=== PATIENT | female | born 1930 | race Caucasian/White ===

== ENCOUNTER → 2016-09-08 | Outpatient (CLI) | payer MEDICARE ==
[~2016-09-08] MED LIST: AMIT8CAP6 OR; DEXI60CA3 PO; ESTR1 PO; LEVO.05 PO; METO25 PO; PRAV40TA PO; PRIN10TA PO; TRAM50 PO; VESI10TA4 PO; pradaxa PO
[2016-09-08 13:32] LABS: MEAN CELL VOLUME 93.3 FL (80.0-100.0); MEAN CORPUSCULAR HEMOGLOBIN 31.6 PG (27.0-34.0); MEAN CORPUSCULAR HGB CONC 33.9 % (32.0-36.0); PLATELET COUNT 157 TH/MM3 (150-450); RED BLOOD COUNT 4.07 MIL/MM3 (4.00-5.30); REVIEW FLAG FINAL; WHITE BLOOD COUNT 3.5 TH/MM3 (4.0-11.0)
[2016-09-08 14:15] LABS: ALKALINE PHOSPHATASE 102 U/L (45-117); ALT (GPT) 21 U/L (10-53); ANION GAP 5 MEQ/L (5-15); AST (GOT) 21 U/L (15-37); BICARBONATE 35.3 MEQ/L (21.0-32.0); BLOOD UREA NITROGEN 30 MG/DL (7-18); CHLORIDE 96 MEQ/L (98-107); FREE T4 1.21 NG/DL (0.76-1.46); GLOMERULAR FILTRATION RATE 45 ML/MIN (>89); GLUCOSE,FASTING 73 MG/DL (74-99); LDL CHOLESTEROL 59 MG/DL (0-99); LDL CHOLESTEROL DIRECT 80 MG/DL (0-99); SODIUM (NA) 136 MEQ/L (136-145); TOTAL BILIRUBIN ADULT 0.8 MG/DL (0.2-1.0)
[2016-09-08 14:20] LABS: POTASSIUM 2.6 MEQ/L (3.5-5.1)
== END ==
LOC: PLAB 08:45
PROVIDERS: ATTEND Family Medicine
DX: I25.10 Atherosclerotic heart disease of native coronary artery without angina pectoris (principal); E78.2 Mixed hyperlipidemia; I10 Essential (primary) hypertension; E03.8 Other specified hypothyroidism; I48.91 Unspecified atrial fibrillation
CPT/HCPCS: 36415; 80053; 80061; 83721; 84439; 84443; 85027

== ENCOUNTER → 2016-09-14 | Outpatient (CLI) | payer MEDICARE | LOC: PLAB 08:59 | PROVIDERS: ATTEND Family Medicine | DX: R79.89 Other specified abnormal findings of blood chemistry (principal) | CPT/HCPCS: 36415; 84132 ==

== ENCOUNTER → 2016-10-15 | Outpatient (CLI) | payer MEDICARE | LOC: PLAB 09:14 | PROVIDERS: ATTEND Family Medicine | DX: E87.6 Hypokalemia (principal) | CPT/HCPCS: 36415; 84132 ==

== ENCOUNTER → 2016-12-15 | Outpatient (CLI) | payer MEDICARE ==
[2016-12-15 13:06] LABS: HEMATOCRIT 35.9 % (35.0-46.0); MEAN CORPUSCULAR HEMOGLOBIN 32.9 PG (27.0-34.0); PLATELET COUNT 124 TH/MM3 (150-450); RED BLOOD COUNT 3.81 MIL/MM3 (4.00-5.30); RED CELL DISTRIBUTION WIDTH 13.3 % (11.6-17.2); REVIEW FLAG FINAL
[2016-12-15 13:44] LABS: ANION GAP 4 MEQ/L (5-15); AST (GOT) 23 U/L (15-37); BICARBONATE 34.4 MEQ/L (21.0-32.0); BLOOD UREA NITROGEN 25 MG/DL (7-18); CHLORIDE 101 MEQ/L (98-107); GLOMERULAR FILTRATION RATE 46 ML/MIN (>89); GLUCOSE,FASTING 75 MG/DL (74-99); POTASSIUM 4.1 MEQ/L (3.5-5.1); SODIUM (NA) 139 MEQ/L (136-145)
[2016-12-15 13:56] LABS: ALKALINE PHOSPHATASE 90 U/L (45-117); ALT (GPT) 22 U/L (10-53); HDL CHOLESTEROL 68.4 MG/DL (40.0-60.0); LDL CHOLESTEROL 60 MG/DL (0-99); LDL CHOLESTEROL DIRECT 59 MG/DL (0-99); TOTAL BILIRUBIN ADULT 0.8 MG/DL (0.2-1.0)
== END ==
LOC: PLAB 09:30
PROVIDERS: ATTEND Family Medicine
DX: I25.10 Atherosclerotic heart disease of native coronary artery without angina pectoris (principal); I12.9 Hypertensive chronic kidney disease with stage 1 through stage 4 chronic kidney disease, or unspecified chronic kidney disease; N18.3 Chronic kidney disease, stage 3 (moderate); E78.4 Other hyperlipidemia; E03.8 Other specified hypothyroidism
CPT/HCPCS: 36415; 80053; 80061; 83721; 84439; 84443; 85027

== ENCOUNTER → 2017-03-16 | Outpatient (CLI) | payer MEDICARE ==
[2017-03-16 13:20] LABS: HEMATOCRIT 34.1 % (35.0-46.0); MEAN CELL VOLUME 94.3 FL (80.0-100.0); MEAN CORPUSCULAR HEMOGLOBIN 32.2 PG (27.0-34.0); MEAN CORPUSCULAR HGB CONC 34.1 % (32.0-36.0); PLATELET COUNT 143 TH/MM3 (150-450); RED BLOOD COUNT 3.62 MIL/MM3 (4.00-5.30); RED CELL DISTRIBUTION WIDTH 13.1 % (11.6-17.2); REVIEW FLAG FINAL; WHITE BLOOD COUNT 2.6 TH/MM3 (4.0-11.0)
[2017-03-16 13:48] LABS: ANION GAP 6 MEQ/L (5-15); AST (GOT) 18 U/L (15-37); BICARBONATE 32.6 MEQ/L (21.0-32.0); BLOOD UREA NITROGEN 23 MG/DL (7-18); CHLORIDE 97 MEQ/L (98-107); GLOMERULAR FILTRATION RATE 47 ML/MIN (>89); GLUCOSE,FASTING 77 MG/DL (74-99); POTASSIUM 3.3 MEQ/L (3.5-5.1); SODIUM (NA) 136 MEQ/L (136-145)
[2017-03-16 13:57] LABS: ALKALINE PHOSPHATASE 84 U/L (45-117); ALT (GPT) 19 U/L (10-53); FREE T4 1.25 NG/DL (0.76-1.46); HDL CHOLESTEROL 76.5 MG/DL (40.0-60.0); LDL CHOLESTEROL 43 MG/DL (0-99); LDL CHOLESTEROL DIRECT 52 MG/DL (0-99); TOTAL BILIRUBIN ADULT 0.8 MG/DL (0.2-1.0)
== END ==
LOC: PLAB 09:06
PROVIDERS: ATTEND Family Medicine
DX: I25.10 Atherosclerotic heart disease of native coronary artery without angina pectoris (principal); I12.9 Hypertensive chronic kidney disease with stage 1 through stage 4 chronic kidney disease, or unspecified chronic kidney disease; N18.3 Chronic kidney disease, stage 3 (moderate); E78.2 Mixed hyperlipidemia; E03.8 Other specified hypothyroidism
CPT/HCPCS: 36415; 80053; 80061; 83721; 84439; 84443; 85027

== ENCOUNTER → 2017-06-29 | Outpatient (CLI) | payer MEDICARE ==
[2017-06-29 13:32] LABS: HEMATOCRIT 34.3 % (35.0-46.0); MEAN CELL VOLUME 95.4 FL (80.0-100.0); MEAN CORPUSCULAR HEMOGLOBIN 33.1 PG (27.0-34.0); MEAN CORPUSCULAR HGB CONC 34.7 % (32.0-36.0); PLATELET COUNT 171 TH/MM3 (150-450); REVIEW FLAG FINAL; WHITE BLOOD COUNT 3.4 TH/MM3 (4.0-11.0)
[2017-06-29 13:45] LABS: ANION GAP 4 MEQ/L (5-15); AST (GOT) 19 U/L (15-37); BICARBONATE 33.5 MEQ/L (21.0-32.0); BLOOD UREA NITROGEN 21 MG/DL (7-18); CHLORIDE 102 MEQ/L (98-107); GLOMERULAR FILTRATION RATE 46 ML/MIN (>89); GLUCOSE,FASTING 84 MG/DL (74-99); POTASSIUM 3.4 MEQ/L (3.5-5.1); SODIUM (NA) 139 MEQ/L (136-145)
[2017-06-29 13:54] LABS: ALKALINE PHOSPHATASE 83 U/L (45-117); ALT (GPT) 14 U/L (10-53); FREE T4 1.17 NG/DL (0.76-1.46); LDL CHOLESTEROL 50 MG/DL (0-99); LDL CHOLESTEROL DIRECT 56 MG/DL (0-99); TOTAL BILIRUBIN ADULT 0.8 MG/DL (0.2-1.0)
== END ==
LOC: PLAB 10:27
PROVIDERS: ATTEND Family Medicine
DX: I25.10 Atherosclerotic heart disease of native coronary artery without angina pectoris (principal); N18.3 Chronic kidney disease, stage 3 (moderate); E78.5 Hyperlipidemia, unspecified; I10 Essential (primary) hypertension; E03.8 Other specified hypothyroidism
CPT/HCPCS: 36415; 80053; 80061; 83721; 84100; 84439; 84443; 85027

== ENCOUNTER → 2017-10-07 | Outpatient (CLI) | payer MEDICARE ==
[2017-10-07 10:43] LABS: HEMATOCRIT 36.1 % (35.0-46.0); HEMOGLOBIN 12.5 GM/DL (11.6-15.3); MEAN CELL VOLUME 93.8 FL (80.0-100.0); MEAN CORPUSCULAR HEMOGLOBIN 32.6 PG (27.0-34.0); MEAN CORPUSCULAR HGB CONC 34.7 % (32.0-36.0); PLATELET COUNT 297 TH/MM3 (150-450); RED BLOOD COUNT 3.85 MIL/MM3 (4.00-5.30); RED CELL DISTRIBUTION WIDTH 13.1 % (11.6-17.2)
[2017-10-07 11:13] LABS: ALBUMIN 3.4 GM/DL (3.4-5.0); AST (GOT) 25 U/L (15-37); BICARBONATE 31.3 MEQ/L (21.0-32.0); BLOOD UREA NITROGEN 20 MG/DL (7-18); CALCIUM 8.6 MG/DL (8.5-10.1); CHLORIDE 99 MEQ/L (98-107); CREATININE 1.07 MG/DL (0.50-1.00); GLOMERULAR FILTRATION RATE 48 ML/MIN (>89); GLUCOSE,FASTING 83 MG/DL (74-99); SODIUM (NA) 135 MEQ/L (136-145)
[2017-10-07 11:25] LABS: ALKALINE PHOSPHATASE 90 U/L (45-117); ALT (GPT) 16 U/L (10-53); CHOLESTEROL 133 MG/DL (120-200); CHOLESTEROL/ HDL RATIO 2.12 RATIO; FREE T4 1.28 NG/DL (0.76-1.46); HDL CHOLESTEROL 62.5 MG/DL (40.0-60.0); LDL CHOLESTEROL 57 MG/DL (0-99); LDL CHOLESTEROL DIRECT 70 MG/DL (0-99); TOTAL BILIRUBIN ADULT 0.6 MG/DL (0.2-1.0); TOTAL PROTEIN 8.1 GM/DL (6.4-8.2); TRIGLYCERIDES 69 MG/DL (42-150)
== END ==
LOC: PLAB 09:02
PROVIDERS: ATTEND Family Medicine
DX: I25.10 Atherosclerotic heart disease of native coronary artery without angina pectoris (principal); E78.2 Mixed hyperlipidemia; I10 Essential (primary) hypertension; E03.8 Other specified hypothyroidism
CPT/HCPCS: 36415; 80053; 80061; 83721; 84439; 84443; 85027

== ENCOUNTER 2018-03-06 00:42 | Inpatient (IN) ==
[2018-03-06] MEDS ORDERED: Sod Chloride 0.9% Inj 1,000 ML IV.SIG ONE (01:19)
--- NOTE | 2018-03-06 01:45 | ED ---
HPI General Chief Complaint: Syncope Stated Complaint: EVAC/Syncope Source: patient and EMS Mode of arrival: EMS Limitations: no limitations History of Present Illness HPI narrative: 87-year-old woman brought to ED after suffering a syncopal event at her assisted living. She has been experiencing syncopal episodes several times a day for at least the past week. She was seen in this ED earlier in the week for same and then discharged. The episodes occur without warning and she typically does not fall when they occur. She did not fall when she had the syncopal event tonight. It occurred about an hour prior to her arrival. She does not remember anything except waking up with people around her. She denies chest pain and exertional dyspnea. She denies palpitations. No headache. No fevers or chills. She does feel somewhat fatigued. No focal neurological deficits or strokelike symptoms. No blood in stool or bloody vomitus. No seizure activity, tongue biting or urinary incontinence. complaint: loss of consciousness Onset (ago): week(s) -: second(s) Prodromal symptoms: none Injuries sustained associated with event: none Related Data Home Medications Medication Instructions Recorded Confirmed levothyroxine 50 mcg PO DAILY 03/06/18 03/06/18 Allergies Allergy/AdvReac Type Severity Reaction Status Date / Time aspirin Allergy Severe CANNOT Verified 03/06/18 00:57 TAKE DUE TO PACEMAKER codeine Allergy Severe Agitation Verified 03/06/18 00:57 Review of Systems ROS: all other systems reviewed are negative [facility] [place] Medical History Medical History GERD (gastroesophageal reflux disease) (Acute) Hypothyroidism (Acute) Atrial fibrillation (Acute) Hyperlipemia (Acute) Hypertension (Acute) Pacemaker (Acute) Social History Social History Substance History: No History of Abuse Second Hand Smoke Exposure: No Smoking Status: Never smoker How Often Do You Have a Drink Containing Alcohol: Never Recent Travel in [facility] within the Last 8 Weeks: No Recent Out of Country Travel within the Last 8 Weeks: No Immunization History Tetanus Immunization: Unsure Hx Influenza Vaccine This Season: Yes Exam Narrative Exam Narrative: GENERAL: Thin 87-year-old woman lying on stretcher in no acute distress. There are no companions at bedside at the time of my exam. SKIN: Focused skin assessment warm/dry. Multiple bruises in various states of healing and lacerations on forearms and legs. HEAD: Atraumatic. Normocephalic. No trauma present above the level the clavicles. EYES: Pupils equal and round. No scleral icterus. No injection or drainage. ENT: No nasal bleeding or discharge. Mucous membranes pink and moist. NECK: Trachea midline. No JVD. No cervical midline tenderness. Able to rotate head greater than 60 left and right. CARDIOVASCULAR: Regular rate and rhythm. No murmur appreciated. RESPIRATORY: No accessory muscle use. Clear to auscultation. Breath sounds equal bilaterally. GASTROINTESTINAL: Abdomen soft, non-tender, nondistended. Hepatic and splenic margins not palpable. MUSCULOSKELETAL: No obvious deformities. No clubbing. No cyanosis. No edema. NEUROLOGICAL: Awake and alert. No obvious cranial nerve deficits. Motor grossly within normal limits. Normal speech. Extraocular motions intact. No dysarthria or slurred speech. No facial droop. 5 out of 5 motor strength in all 4 extremities. Sensation intact to light touch in all 4 limbs. Normal coordination and no ataxia. PSYCHIATRIC: Appropriate mood and affect; insight and judgment normal. Course Reevaluation(s) Reevaluation #1: Potassium oral and IV forms ordered to treat patient's hypokalemia. Patient stable in the ED with no further episodes of syncope. Time: 03:53 Consultations Consultation #1: Spoke with Dr. VILLAVICENCIO regarding the patient's hypokalemia and syncopal events. Also described the patient's ECG changes. She will admit patient to ICU under telemetry. Time: 04:17 Initial Documented Vital Signs Temperature 98.2 F 03/06/18 00:45 Pulse Rate 86 03/06/18 00:45 Respiratory Rate 16 03/06/18 00:45 Blood Pressure 120/62 03/06/18 00:45 Pulse Oximetry 100 03/06/18 00:45 Last Documented Vital Signs Temperature 98.2 F 03/06/18 00:45 Pulse Rate 78 03/06/18 01:15 Respiratory Rate 16 03/06/18 01:15 Blood Pressure 122/55 L 03/06/18 01:15 Pulse Oximetry 98 03/06/18 01:15 Critical Care Time Critical Care Time: Yes Total Critical Care Time: 45 Attestation: Dedicated attention to this patient's needs was necessary to prevent further deterioration and to treat her hypokalemia with ECG changes in the setting of syncopal events. My time was spent at bedside examining patient , reviewing past medical records, ordering and reviewing laboratory results, interpreting ECG, and discussing case with wardrobe consultant (hospitalist). Medical Decision Making MDM Narrative Medical decision making narrative: 87-year-old female brought in for syncopal events. Previously seen for same and discharged after that evaluation. I am concerned because she has deep ST depressions in V3 and V4; however no reported anginal symptoms so I doubt ACS. I think admission is likely necessary for further observation and evaluation of these events. She was found to have profound hypokalemia so I ordered oral and IV replacement. No evidence of trauma so I do not think that imaging is necessary. No focal neurological deficits to suggest TIA or CVA. Medical Screen Exam Complete: Yes Emergency Medical Condition: Yes Differential Diagnosis Differential Diagnosis: ACS, mitral regurgitation, aortic stenosis, heart failure, renal failure, hypokalemia, hyponatremia, anemia, polypharmacy, drug side effects Medical Records Medical records reviewed: Yes I reviewed the patient's medical records. Lab Data Result diagrams: 03/06/18 01:50 03/06/18 01:50 Lab Results 03/06/18 03/06/18 03/06/18 Range/Units 01:16 01:50 01:50 WBC 5.1 (4.0-11.0) th/mm3 RBC 4.05 (4.00-5.30) mil/mm3 Hgb 13.4 (11.6-15.3) gm/dL Hct 39.2 (35.0-46.0) % MCV 96.7 (80.0-100.0) fL MCH 33.1 (27.0-34.0) pg MCHC 34.2 (32.0-36.0) % RDW 12.3 (11.6-17.2) % Plt Count 176 (150-450) th/mm3 MPV 8.3 (7.0-11.0) fL Prelim Diff (Auto) Auto diff final Neut % (Auto) 72.5 H (16.0-70.0) % Lymph % (Auto) 11.3 (9.0-44.0) % [place] % (Auto) 13.9 H (0.0-8.0) % Eos % (Auto) 1.2 (0.0-4.0) % Baso % (Auto) 0.8 (0.0-2.0) % Neut # (Auto) 3.7 (1.8-7.7) th/mm3 Lymph # (Auto) 0.6 L (1.0-4.8) th/mm3 [place] # (Auto) 0.7 (0.0-0.9) th/mm3 Eos # (Auto) 0.1 (0.0-0.4) th/mm3 Baso # (Auto) 0.0 (0.0-0.2) th/mm3 WBC Differential . Differential Comment . Sodium 135 L (136-145) meq/L Potassium 2.2 L* (3.5-5.1) meq/L Chloride 90 L (98-107) meq/L Carbon Dioxide 35.7 H (21.0-32.0) meq/L Anion Gap 9 (5-15) meq/L BUN 29 H (7-18) mg/dL Creatinine 1.30 H (0.50-1.00) mg/dL Estimated GFR 39 L (>89) mL/min POC Glucose 108 (68-110) mg/dl Random Glucose 107 H (74-106) mg/dL Calcium 8.3 L (8.5-10.1) mg/dL Total Bilirubin 1.0 (0.2-1.0) mg/dL AST 25 (15-37) U/L ALT 17 (10-53) U/L Alkaline Phosphatase 76 (45-117) U/L Troponin I 0.03 (0.02-0.05) ng/mL Total Protein 7.2 (6.4-8.2) g/dL Albumin 3.3 L (3.4-5.0) g/dL ECG Data Attestation: I personally reviewed and interpreted this ECG as follows: Interpretation: Rate 79 bpm rhythm atrial fibrillation with controlled rate, W[place] interval undefinable, QRS interval 89 ms, QTc interval 420 ms, deep ST depressions in lead V3 and V4 with shallow ST depressions in V5 and V6, not a STEMI. Discharge Plan Discharge Disposition Patient Disposition: 30 Still Patient Discharge Condition Condition: Serious Physicians Team ED Provider: Otto Bajwa Primary Care Provider: Amilcar,Arsen D Rxs /Orders / Referrals /Forms Prescriptions: No Action levothyroxine 50 mcg Tablet 50 mcg PO DAILY RF: 0 Discharge Interventions Interventions: Vital Signs Last Done: 03/06/18 01:15 Status ED Status: With Nurse
[2018-03-06 03:07] LABS: Hematocrit 39.2 % (35.0-46.0); Hemoglobin 13.4 gm/dL (11.6-15.3); Mean Corpuscular Volume 96.7 fL (80.0-100.0); Red Blood Count 4.05 mil/mm3 (4.00-5.30); White Blood Count 5.1 th/mm3 (4.0-11.0)
[2018-03-06 03:08] LABS: Baso % (Auto) 0.8 % (0.0-2.0); Eos % (Auto) 1.2 % (0.0-4.0); Lymph % (Auto) 11.3 % (9.0-44.0); Mean Corpuscular HGB Conc 34.2 % (32.0-36.0); Mean Corpuscular Hemoglobin 33.1 pg (27.0-34.0); Mean Platelet Volume 8.3 fL (7.0-11.0); Mono % (Auto) 13.9 % (0.0-8.0); Neut # (Auto) 3.7 th/mm3 (1.8-7.7); Neut % (Auto) 72.5 % (16.0-70.0); Platelet Count 176 th/mm3 (150-450); Red Cell Distribution Width 12.3 % (11.6-17.2)
[2018-03-06 03:09] LABS: Eos # (Auto) 0.1 th/mm3 (0.0-0.4); Lymph # (Auto) 0.6 th/mm3 (1.0-4.8); Mono # (Auto) 0.7 th/mm3 (0.0-0.9)
[2018-03-06 03:17] LABS: Sodium 135 meq/L (136-145)
[2018-03-06 03:19] LABS: Alanine Aminotransferase 17 U/L (10-53); Anion Gap 9 meq/L (5-15); Aspartate Aminotransferase 25 U/L (15-37); Blood Urea Nitrogen 29 mg/dL (7-18); Calcium 8.3 mg/dL (8.5-10.1); Carbon Dioxide 35.7 meq/L (21.0-32.0); Chloride 90 meq/L (98-107); Glomerular Filtration Rate 39 mL/min (>89); Glucose,Random 107 mg/dL (74-106); Potassium 2.2 meq/L (3.5-5.1)
[2018-03-06 03:20] LABS: Albumin 3.3 g/dL (3.4-5.0); Alkaline Phosphatase 76 U/L (45-117); Total Protein 7.2 g/dL (6.4-8.2)
[2018-03-06] MEDS ORDERED: Potassium Chloride 25 MEQ Effervescent Tablet PO ONE (03:51)
[2018-03-06 04:01] LABS: Troponin I 0.03 ng/mL (0.02-0.05)
[2018-03-06] MEDS: Potassium Chlor 10 mEq Premix 10 MEQ/100 ML PIGGYBACK IV.SIG SCH ×6 (04:16→09:04)
[2018-03-06] MEDS ORDERED: Bisacodyl 10 MG Supp RECTAL PRN (04:18)
[2018-03-06] MEDS ORDERED: Acetaminophen 325 MG Tablet PO PRN (04:18)
[2018-03-06] MEDS: Sod Chloride 0.9% Inj 1,000 ML IV.CONT SCH ×2 (04:27→15:35)
[2018-03-06] MEDS ORDERED: Potassium Chlor 20 mEq Premix 20 MEQ/100 ML PIGGYBACK IV.SIG SCH (04:30)
[2018-03-06 06:33] LABS: Bilirubin,Urine Negative (Negative); Clarity,Urine Clear (Clear); Color,Urine Yellow (Yellw/Straw); Glucose,Urine (UA) Negative (Negative); Leukocyte Esterase,Urine Negative (Negative); Nitrite,Urine Negative (Negative); PH,Urine 6.5 (5.0-8.5); Specific Gravity,Urine Less/Equal 1.005 (1.002-1.035); Urobilinogen,Urine 0.2 mg/dL (Less than 2)
[2018-03-06 06:39] LABS: Collection Time,Urine 520 hours
[2018-03-06] MEDS: Senna/Docusate Sodium 8.6/50 MG Tablet PO SCH ×2 (09:05→21:01)
--- NOTE | 2018-03-06 13:20 | ECG ---
Date Performed: 03/06/2018 Time Performed: 01:32:39 PTAGE: 87 years EKG: ATRIAL FIBRILLATION ST DEVIATION AND MODERATE T-WAVE ABNORMALITY, CONSIDER INFERIOR ISCHEMI A ABNORMAL ECG PREVIOUS TRACING : 05/17/2009 11.20 Compared to previous tracing, precordial ST changes are new Inferior ST changes are new. Consider Ischemia. Clinical correlation is recommended DOCTOR: Cyrus Morrissey Interpretating Date/Time 03/06/2018 13:18:57
--- NOTE | 2018-03-06 14:52 | P.HP ---
History of Present Illness Service: Hospitalist Primary Care Physician: Arsen Fitzgerald MD Chief Complaint: Recurrent syncope History of Present Illness: Ms. Clark is a pleasant 87 year old female with a history of atrial fibrillation , hypothyroidism, hyperlipidemia, hypertension status post pacemaker placement many years ago who presents to the emergency department on 03/06/2018 due to recurrent syncopal episodes in the last 1 month. Last night at around 9 or 10 PM, patient experienced lightheadedness and dizziness and subsequently she had a syncopal episode. She denies any tongue biting, loss of control of bladder or bowel. She reports more than 10 episodes of syncope in the last 30 days. Her last battery change of her pacemaker was in 2008. She follows up with [employer] Dr. Zhou. Currently she is asymptomatic. She denies any chest pain, shortness of breath, cough, abdominal pain, changes in bladder or bowel habits. PMH: HTN, HLD, Afib, pacemaker placement PSH: Hysterectomy Social hx : Denies using tobacco, alcohol, illicit drugs. Family history is negative for all tremors of Parkinson's. Inpatient Certification: I certify that the inpatient services were ordered in accordance with Medicare regulations governing the order. This includes certification that hospital inpatient services are reasonable and necessary and in the case of services not specified as inpatient-only under 42 CFR 419.22(n), that they are appropriately provided as inpatient services in accordance to with the 2-midnight benchmark under 43 CFR 412.3(e) Estimated Total Length of Stay (Days): 2 Plans for Post Hospital Care: Not yet determined Review of Systems All other systems reviewed negative except as stated in [facility] - History History Provided By: Patient - Medical History Medical History: Medical History (Last Reviewed 03/06/18 @ 08:30 by Dean Gamboa) GERD (gastroesophageal reflux disease) Hypothyroidism Atrial fibrillation Hyperlipemia Hypertension Pacemaker - Tobacco History Second Hand Smoke Exposure: No Smoking Status: Never smoker - Alcohol History How Often Do You Have a Drink Containing Alcohol: Never - Substance Use History Substance History: No History of Abuse - Travel History Recent Travel in the [place] Within the Last 8 Weeks: No Recent Travel Out of the Country Within the Last 8 Weeks: No - Immunization History Tetanus Immunization: Unsure Hx Influenza Vaccine This Season: Yes Medications and Allergies Active Medications: Active Medications Acetaminophen (Tylenol) 650 mg PO Q4H PRN PRN Reason: Temp > 100.4 Al Hydroxide/Mg Hydroxide (Milk Of Magnesia Liq) 30 ml PO Q12H PRN PRN Reason: Mild Constipation Bisacodyl (Dulcolax Supp) 10 mg RECTAL DAILY PRN PRN Reason: SEVERE CONSITIPATION Chlorhexidine Gluconate (Chlorhexidine 2% Cloth) 3 pack TOPICAL DAILY@0400 VIN Stop: 03/12/18 03:59 Chlorhexidine Gluconate (Chlorhexidine 2% Cloth) 3 pack TOPICAL DAILY@0400 PRN PRN Reason: Extra cloth needed Stop: 03/12/18 03:59 Sodium Chloride (Ns Inj) 1,000 mls @ 100 mls/hr IV.CONT .Q10H [facility] Last Admin: 03/06/18 04:27 Dose: 100 mls/hr Lactulose (Lactulose Liq) 30 ml PO DAILY PRN PRN Reason: SEVERE CONSITIPATION Ondansetron HCl (Zofran Inj) 4 mg IV.PUSH Q6H PRN PRN Reason: NAUSEA OR VOMITING Senna/Docusate Sodium (Madhuri-Colace) 1 tab PO BID [facility] Last Admin: 03/06/18 09:05 Dose: Not Given Sennosides (Senokot) 17.2 mg PO Q12H PRN PRN Reason: Moderate Constipation Sodium Chloride (Ns Flush) 2 ml IV.FLUSH PRN PRN PRN Reason: FLUSH AFTER USING IV ACCESS Last Admin: 03/06/18 02:31 Dose: 2 ml Allergies Allergy/AdvReac Type Severity Reaction Status Date / Time aspirin Allergy Severe CANNOT Verified 03/06/18 00:57 TAKE DUE TO PACEMAKER codeine Allergy Severe Agitation Verified 03/06/18 00:57 Home Medications Medication Instructions Recorded Confirmed Type levothyroxine 50 mcg PO DAILY 03/06/18 03/06/18 History Exam Vital signs: Vital Signs 03/06/18 00:45 03/06/18 01:00 03/06/18 01:15 Temperature 98.2 F Pulse Rate 86 86 78 Respiratory Rate 16 16 Blood Pressure 120/62 122/55 L Pulse Oximetry 100 100 98 03/06/18 03:00 03/06/18 04:00 03/06/18 04:18 Temperature Pulse Rate 81 81 77 Respiratory Rate 16 Blood Pressure 120/58 L Pulse Oximetry 99 98 03/06/18 04:30 03/06/18 07:08 03/06/18 08:20 Temperature Pulse Rate 84 76 68 Respiratory Rate 16 18 18 Blood Pressure 124/55 L 131/75 112/53 L Pulse Oximetry 97 99 99 03/06/18 08:29 03/06/18 11:24 03/06/18 12:00 Temperature 98.0 F 98.8 F Pulse Rate Respiratory Rate Blood Pressure Pulse Oximetry 98 Intake & Output 03/05/18 03/06/18 03/06/18 18:59 06:59 18:59 Intake Total 1200 / 1200 440 / 440 Output Total 200 / 200 200 / 200 Balance 1000 / 1000 240 / 240 Weight 48.534 kg 50.6 kg Intake: IV 1200 / 1200 200 / 200 KCl 10 mEq Premix Inj 10 meq In 200 / 200 200 / 200 100 ml @ 100 mls/hr IV.SIG Q1H VIN Rx#:[id number] NS Inj 1,000 ML @ Wide Open IV. 1000 / 1000 SIG BOLUS ONE Rx#:[id number] Oral 240 / 240 Output: Urine 200 / 200 200 / 200 Other: Weight On Admission 48.534 kg Narrative: GENERAL: This is a well-nourished, well-developed patient, in no apparent distress. SKIN: No rashes, ecchymoses or lesions. Warm and dry. HEAD: Atraumatic. Normocephalic. No temporal or scalp tenderness. EYES: Pupils equal round and reactive. No injection or drainage. ENT: Nose without bleeding, purulent drainage or septal hematoma. Airway patent. NECK: Trachea midline. No lymphadenopathy. Supple, nontender, no meningeal signs. CARDIOVASCULAR: Regular rate and rhythm without murmurs, gallops, or rubs. No JVD. RESPIRATORY: Clear to auscultation. Breath sounds equal bilaterally. No wheezes , rales, or rhonchi. GASTROINTESTINAL: Abdomen soft, non-tender, nondistended. No guarding. MUSCULOSKELETAL: Extremities without clubbing, cyanosis, or edema. NEUROLOGICAL: Awake and alert. Cranial nerves II through XII intact. No focal neurological deficits. Normal speech. Results - Labs CBC & Chem 7: 03/06/18 01:50 03/06/18 15:18 Labs: Laboratory Results - last 24 hr 03/06/18 03/06/18 03/06/18 01:16 01:50 01:50 WBC 5.1 RBC 4.05 Hgb 13.4 Hct 39.2 MCV 96.7 MCH 33.1 MCHC 34.2 RDW 12.3 Plt Count 176 MPV 8.3 Prelim Diff (Auto) Auto diff final Neut % (Auto) 72.5 H Lymph % (Auto) 11.3 [place] % (Auto) 13.9 H Eos % (Auto) 1.2 Baso % (Auto) 0.8 Neut # (Auto) 3.7 Lymph # (Auto) 0.6 L [place] # (Auto) 0.7 Eos # (Auto) 0.1 Baso # (Auto) 0.0 WBC Differential . Differential Comment . Sodium 135 L Potassium 2.2 L* Chloride 90 L Carbon Dioxide 35.7 H Anion Gap 9 BUN 29 H Creatinine 1.30 H Estimated GFR 39 L POC Glucose 108 Random Glucose 107 H Calcium 8.3 L Total Bilirubin 1.0 AST 25 ALT 17 Alkaline Phosphatase 76 Troponin I 0.03 B-Natriuretic Peptide Total Protein 7.2 Albumin 3.3 L Ur Collection Type Urine Color Urine Clarity Urine pH Ur Specific [place] Urine Protein Urine Glucose (UA) Urine Ketones Urine Occult Blood Urine Nitrate Urine Bilirubin Urine Urobilinogen Ur Leukocyte Esterase Ur Squamous Epith Cells Micro UA Comment Ur Microscopic Review Urine Culture Comments Urine Collection Time 03/06/18 03/06/18 03/06/18 01:50 05:20 09:45 WBC RBC Hgb Hct MCV MCH MCHC RDW Plt Count MPV Prelim Diff (Auto) Neut % (Auto) Lymph % (Auto) [place] % (Auto) Eos % (Auto) Baso % (Auto) Neut # (Auto) Lymph # (Auto) [place] # (Auto) Eos # (Auto) Baso # (Auto) WBC Differential Differential Comment Sodium Potassium Chloride Carbon Dioxide Anion Gap BUN Creatinine Estimated GFR POC Glucose Random Glucose Calcium Total Bilirubin AST ALT Alkaline Phosphatase Troponin I 0.03 B-Natriuretic Peptide 137 H Total Protein Albumin Ur Collection Type Clean catch Urine Color Yellow Urine Clarity Clear Urine pH 6.5 Ur Specific [place] Less/equal 1.005 Urine Protein Negative Urine Glucose (UA) Negative Urine Ketones Negative Urine Occult Blood Negative Urine Nitrate Negative Urine Bilirubin Negative Urine Urobilinogen 0.2 Ur Leukocyte Esterase Negative Ur Squamous Epith Cells 6-10 H Micro UA Comment Culture not ind Ur Microscopic Review Microscopic reviewed Urine Culture Comments Culture not ind Urine Collection Time 520 08/26/18 11:29 WBC RBC Hgb Hct MCV MCH MCHC RDW Plt Count MPV Prelim Diff (Auto) Neut % (Auto) Lymph % (Auto) [place] % (Auto) Eos % (Auto) Baso % (Auto) Neut # (Auto) Lymph # (Auto) [place] # (Auto) Eos # (Auto) Baso # (Auto) WBC Differential Differential Comment Sodium Potassium Chloride Carbon Dioxide Anion Gap BUN Creatinine Estimated GFR POC Glucose 88 Random Glucose Calcium Total Bilirubin AST ALT Alkaline Phosphatase Troponin I B-Natriuretic Peptide Total Protein Albumin Ur Collection Type Urine Color Urine Clarity Urine pH Ur Specific [place] Urine Protein Urine Glucose (UA) Urine Ketones Urine Occult Blood Urine Nitrate Urine Bilirubin Urine Urobilinogen Ur Leukocyte Esterase Ur Squamous Epith Cells Micro UA Comment Ur Microscopic Review Urine Culture Comments Urine Collection Time Caprini VTE Risk Assessment Caprini VTE Risk Assessment: Moderate/High Risk (score >= 2) Caprini Risk Assessment Model: Point Value = 1 Point Value = 2 Point Value = 3 Point Value = 5 Age 41-60 Minor surgery BMI > 25 kg/m2 Swollen legs Varicose veins or History of unexplained or recurrent spontaneous Oral contraceptives or hormone replacement Sepsis (< 1 month) Serious lung disease, including pneumonia (< 1 month) Abnormal pulmonary function Acute myocardial infarction Congestive heart failure (< 1 month) History of inflammatory bowel disease Medical patient at bed rest Age 61-74 Arthroscopic surgery Major open surgery (> 45 min) Laparoscopic surgery (> 45 min) Malignancy Confined to bed (> 72 hours) Immobilizing plaster cast Central venous access Age >= 75 History of VTE Family history of VTE Factor V Leiden Prothrombin [id number] Lupus anticoagulant Anticardiolipin antibodies Elevated serum homocysteine Heparin-induced thrombocytopenia Other congenital or acquired thrombophilia Stroke (< 1 month) Elective arthroplasty Hip, pelvis, or leg fracture Acute spinal cord injury (< 1 month) Prophylaxis Regimen: Total Risk Factor Score Risk Level Prophylaxis Regimen 0-1 Low Early ambulation 2 Moderate Order ONE of the following: *Sequential Compression Device (SCD) *Heparin 5000 units SQ BID 3-4 Higher Order ONE of the following medications: *Heparin 5000 units SQ TID *Enoxaparin/Lovenox 40 mg SQ daily (WT < 150 kg, CrCl > 30 mL/min) *Enoxaparin/Lovenox 30 mg SQ daily (WT < 150 kg, CrCl > 10-29 mL/min) *Enoxaparin/Lovenox 30 mg SQ BID (WT < 150 kg, CrCl > 30 mL/min) AND/OR *Sequential Compression Device (SCD) 5 or more Highest Order ONE of the following medications: *Heparin 5000 units SQ TID (Preferred with Epidurals) *Enoxaparin/Lovenox 40 mg SQ daily (WT < 150 kg, CrCl > 30 mL/min) *Enoxaparin/Lovenox 30 mg SQ daily (WT < 150 kg, CrCl > 10-29 mL/min) *Enoxaparin/Lovenox 30 mg SQ BID (WT < 150 kg, CrCl > 30 mL/min) AND *Sequential Compression Device (SCD) Assessment and Plan - Plan Ms. Clark is a pleasant 87 year old female with a history of pacemaker placement (last battery change in 2008) who presents to the ED due to an episode of syncope at night on 03/05/2018. She reports more than 10 episodes of syncopal episodes in the last 30 days. Recurrent syncope Probable Pacemaker malfunction - Will obtain device interrogation (hiyalife). - Also consult Dr. Zhou (Cardiology) for an evaluation. Hypokalemia Hypomagnesemia - Will initiate electrolyte replacement protocol. - Keep potassium around 4.0 and Magnesium around 2.0. Hypothyroidism - Continue home med Levothyroxine 50mcg Qday. Full code. SCDs. If prolong hospitalization expected, we will consider DVT anticoagulation.
[2018-03-06] MEDS ORDERED: Magnesium Sulfate Inj 4 GM in Sodium Chlor 0.9% Inj 92 ML IV.SIG PRN (15:08)
[2018-03-06] MEDS ORDERED: Sodium Phosphate Inj 30 MMOL in Sodium Chlor 0.9% Inj 250 ML IV.SIG PRN (15:08)
[2018-03-06] MEDS ORDERED: Potassium Phosphate Inj 30 MMOL in Sodium Chlor 0.9% Inj 250 ML IV.SIG PRN (15:08)
[2018-03-06] MEDS ORDERED: Magnesium Sulfate Inj 2 GM in Sodium Chlor 0.9% Inj 96 ML IV.SIG PRN (15:08)
[2018-03-06] MEDS ORDERED: Potassium Chlor 20 mEq Premix 20 MEQ/100 ML PIGGYBACK IV.SIG PRN (15:08)
[2018-03-06] MEDS ORDERED: Magnesium Oxide 400 MG Tablet PO PRN (15:08)
[2018-03-06] MEDS ORDERED: Potassium Chloride 25 MEQ Effervescent Tablet PO PRN (15:08)
[2018-03-06] MEDS ORDERED: Potassium Phosphate 500 MG Soluble Tablet PO PRN ×2 (15:08)
[2018-03-06] MEDS ORDERED: Potassium Chlor 40 mEq Premix 40 MEQ/100 ML PIGGYBACK IV.SIG PRN ×2 (15:08)
--- NOTE | 2018-03-06 15:38 | ECHRPT ---
Indication: Cardiomyopathy CONCLUSIONS Normal left ventricular size. Wall thickness is normal. The left ventricular systolic function is normal with an estimated ejection fraction in the range of 65%. The left atrial size is moderately dilated. The right atrial size is severely dilated. Mitral annular calcification is present. Moderate mitral valve regurgitation. Aortic valve sclerosis is present. Trace aortic valve regurgitation. There is moderate tricuspid regurgitation. There is estimated severe pulmonary hypertension present ( 72 mmHg). BP: / HR: Rhythm: MEASUREMENTS (Male / Female) Normal Values Technical Quality: 2D ECHO LV Diastolic Diameter PLAX 4.0 cm 4.2 - 5.9 / 3.9 - 5.3 cm LV Systolic Diameter PLAX 2.9 cm IVS Diastolic Thickness 1.0 cm 0.6 - 1.0 / 0.6 - 0.9 cm LVPW Diastolic Thickness 0.5 cm 0.6 - 1.0 / 0.6 - 0.9 cm LV Relative Wall Thickness 0.4 RV Internal Dim ED PLAX 2.0 cm LA Systolic Diameter LX 4.0 cm 3.0 - 4.0 / 2.7 - 3.8 cm M-MODE AV Cusp Separation MM 1.7 cm DOPPLER MR Peak Velocity 485.0 cm/s MR Peak Gradient 94.1 mmHg Mitral E Point Velocity 89.5 cm/s Mitral A Point Velocity 34.6 cm/s Mitral E to A Ratio 2.6 TR Peak Velocity 378.0 cm/s TR Peak Gradient 57.2 mmHg Right Atrial Pressure 15.0 mmHg Pulmonary Artery Systolic Pressu 72.2 mmHg Right Ventricular Systolic Press 72.2 mmHg FINDINGS LEFT VENTRICLE Normal left ventricular size. Wall thickness is normal. The left ventricular systolic function is normal with an estimated ejection fraction in the range of 65%. RIGHT VENTRICLE The right ventricle is mildly dilated. LEFT ATRIUM The left atrial size is moderately dilated. RIGHT ATRIUM The right atrial size is severely dilated. ATRIAL SEPTUM Normal atrial septal thickness without atrial level shunting by limited color doppler interrogation. AORTA The aortic root and proximal ascending aorta are normal in size on limited imaging. MITRAL VALVE Mitral annular calcification is present. Moderate mitral valve regurgitation. AORTIC VALVE Aortic valve sclerosis is present. Trace aortic valve regurgitation. TRICUSPID VALVE There is moderate tricuspid regurgitation. There is estimated severe pulmonary hypertension present ( 72 mmHg). PULMONARY VALVE No pulmonary valve regurgitation or stenosis. VESSELS The inferior vena cava is dilated. PERICARDIUM No pericardial effusion. Cyrus Morrissey MD (Electronically Signed) Final Date:06 March 2018 15:36
[2018-03-06 16:11] LABS: Magnesium 1.6 mg/dL (1.5-2.5); Troponin I 0.03 ng/mL (0.02-0.05)
[2018-03-06 16:27] LABS: Potassium 2.8 meq/L (3.5-5.1)
[2018-03-06] MEDS: Potassium Chlor 20 mEq Premix 20 MEQ/100 ML PIGGYBACK IV.SIG PRN ×6 (19:20→21:53)
--- NOTE | 2018-03-06 20:14 | ECG ---
Date Performed: 03/06/2018 Time Performed: 15:14:48 PTAGE: 87 years EKG: ATRIAL FIBRILLATION INCOMPLETE RIGHT BUNDLE BRANCH BLOCK ST DEVIATION AND T-WAVE ABNORMALIT Y, ABNORMAL ECG PREVIOUS TRACING : 03/06/2018 01.32 Since the previous tracing, no significant change noted DOCTOR: Gaby Cr Interpretating Date/Time 03/06/2018 20:13:01
[2018-03-06] MEDS: Potassium Chlor 20 mEq Premix 20 MEQ/100 ML PIGGYBACK IV.SIG SCH ×4 (20:26→22:21)
[2018-03-07] MEDS: Potassium Chlor 20 mEq Premix 20 MEQ/100 ML PIGGYBACK IV.SIG PRN (01:16)
[2018-03-07] MEDS ORDERED: Chlorhexidine Gluconate 2% 1 Pack (2 Cloths) TOPICAL PRN (04:00)
[2018-03-07] MEDS ORDERED: Chlorhexidine Gluconate 2% 1 Pack (2 Cloths) TOPICAL SCH (04:00)
[2018-03-07] MEDS: Sod Chloride 0.9% Inj 1,000 ML IV.CONT SCH ×3 (04:08→14:26)
[2018-03-07 05:07] LABS: Baso % (Auto) 0.5 % (0.0-2.0); Eos # (Auto) 0.1 th/mm3 (0.0-0.4); Eos % (Auto) 2.8 % (0.0-4.0); Hematocrit 34.5 % (35.0-46.0); Hemoglobin 11.4 gm/dL (11.6-15.3); Lymph # (Auto) 0.7 th/mm3 (1.0-4.8); Mean Corpuscular HGB Conc 33.1 % (32.0-36.0); Mean Corpuscular Hemoglobin 32.2 pg (27.0-34.0); Mean Corpuscular Volume 97.3 fL (80.0-100.0); Mean Platelet Volume 7.9 fL (7.0-11.0); Mono # (Auto) 0.5 th/mm3 (0.0-0.9); Mono % (Auto) 11.1 % (0.0-8.0); Neut # (Auto) 2.9 th/mm3 (1.8-7.7); Neut % (Auto) 69.6 % (16.0-70.0); Platelet Count 148 th/mm3 (150-450); Red Blood Count 3.55 mil/mm3 (4.00-5.30); Red Cell Distribution Width 13.1 % (11.6-17.2); White Blood Count 4.2 th/mm3 (4.0-11.0)
[2018-03-07 05:19] LABS: Albumin 2.7 g/dL (3.4-5.0); Anion Gap 4 meq/L (5-15); Blood Urea Nitrogen 19 mg/dL (7-18); Calcium 7.9 mg/dL (8.5-10.1); Chloride 111 meq/L (98-107); Glucose,Random 86 mg/dL (74-106); Potassium 3.9 meq/L (3.5-5.1); Sodium 143 meq/L (136-145)
[2018-03-07 05:20] LABS: Alanine Aminotransferase 15 U/L (10-53); Aspartate Aminotransferase 23 U/L (15-37); Glomerular Filtration Rate 61 mL/min (>89)
[2018-03-07 05:27] LABS: Alkaline Phosphatase 64 U/L (45-117)
[2018-03-07] MEDS ORDERED: Levothyroxine 50 MCG Tablet PO SCH (06:00)
[2018-03-07] MEDS: Senna/Docusate Sodium 8.6/50 MG Tablet PO SCH (09:09)
--- NOTE | 2018-03-07 10:35 | P.PN ---
Subjective Interval history: Follow up for syncope, hypokalemia, hypomagnesemia. Patient is currently doing well. No further episodes of syncope. No nausea vomiting. No fever or chills. Physical Exam Vital signs: Vital Signs 03/06/18 11:24 03/06/18 12:00 03/06/18 16:00 Temperature 98.8 F 98.8 F Pulse Rate Respiratory Rate Blood Pressure Pulse Oximetry 98 03/06/18 20:00 03/07/18 00:00 03/07/18 01:00 Temperature 97.5 F L 97.7 F Pulse Rate 70 70 68 Respiratory Rate 15 15 16 Blood Pressure 96/48 L 113/53 L 113/53 L Pulse Oximetry 96 100 100 03/07/18 02:00 03/07/18 03:00 03/07/18 04:00 Temperature 97.1 F L Pulse Rate 68 62 68 Respiratory Rate 17 16 16 Blood Pressure 111/54 L 113/50 L 119/52 L Pulse Oximetry 100 99 100 03/07/18 05:00 03/07/18 05:58 03/07/18 08:00 Temperature Pulse Rate 54 L 62 Respiratory Rate 15 15 Blood Pressure 110/53 L 126/47 L 127/51 L Pulse Oximetry 100 100 Intake & Output 03/06/18 03/07/18 03/07/18 18:59 06:59 18:59 Intake Total 1920 / 1920 1740 / 1740 100 / 100 Output Total 901 / 901 750 / 750 Balance 1019 / 1019 990 / 990 100 / 100 Weight 50.6 kg 52 kg Intake: IV 1200 / 1200 1500 / 1500 100 / 100 NS Inj 1,000 ML @ 100 mls/hr IV 1000 / 1000 1000 / 1000 .CONT .Q10H VIN Rx#:[id number] KCl 10 mEq Premix Inj 10 meq In 200 / 200 100 ml @ 100 mls/hr IV.SIG Q1H VIN Rx#:[id number] KCl 20 mEq Premix Inj 20 meq In 500 / 500 100 / 100 100 ml @ 50 mls/hr IV.SIG Q2H VIN Rx#:[id number] Oral 720 / 720 240 / 240 Output: Urine 900 / 900 750 / 750 Stool 1 / Other: # Voids 3 Date of Last Bowel Movement 03/06/18 03/07/18 # Bowel Movements 1 Weight On Admission 48.534 kg Narrative: GENERAL: Alert, oriented 3, NAD. SKIN: Warm and dry. HEAD: Normocephalic. EYES: No scleral icterus. No injection or drainage. NECK: Supple, trachea midline. No JVD or lymphadenopathy. CARDIOVASCULAR: Regular rate and rhythm without murmurs, gallops, or rubs. RESPIRATORY: Breath sounds equal bilaterally. No accessory muscle use. GASTROINTESTINAL: Abdomen soft, non-tender, nondistended. MUSCULOSKELETAL: No cyanosis, or edema. BACK: Nontender without obvious deformity. No CVA tenderness. Results - Labs CBC & Chem 7: 03/07/18 04:30 03/07/18 04:30 Laboratory Results - last 24 hr 03/06/18 03/06/18 03/06/18 11:24 11:29 15:18 CBC w Diff WBC RBC Hgb Hct MCV MCH MCHC RDW Plt Count MPV Neut % (Auto) Lymph % (Auto) [place] % (Auto) Eos % (Auto) Baso % (Auto) Neut # (Auto) Lymph # (Auto) [place] # (Auto) Eos # (Auto) Baso # (Auto) WBC Differential Differential Comment Sodium Potassium 2.8 L* Chloride Carbon Dioxide Anion Gap BUN Creatinine Estimated GFR POC Glucose 88 Random Glucose Calcium Magnesium 1.6 Total Bilirubin AST ALT Alkaline Phosphatase Troponin I 0.03 Total Protein Albumin Nasal Screen MRSA (PCR) Not detected 03/07/18 03/07/18 03/07/18 04:30 04:30 04:30 CBC w Diff Auto diff final WBC 4.2 RBC 3.55 L Hgb 11.4 L D Hct 34.5 L MCV 97.3 MCH 32.2 MCHC 33.1 RDW 13.1 Plt Count 148 L MPV 7.9 Neut % (Auto) 69.6 Lymph % (Auto) 16.0 [place] % (Auto) 11.1 H Eos % (Auto) 2.8 Baso % (Auto) 0.5 Neut # (Auto) 2.9 Lymph # (Auto) 0.7 L [place] # (Auto) 0.5 Eos # (Auto) 0.1 Baso # (Auto) 0.0 WBC Differential . Differential Comment . Sodium 143 Potassium 3.9 D Chloride 111 H D Carbon Dioxide 28.0 Anion Gap 4 L BUN 19 H Creatinine 0.88 Estimated GFR 61 L POC Glucose Random Glucose 86 Calcium 7.9 L Magnesium 1.6 Total Bilirubin 0.6 AST 23 ALT 15 Alkaline Phosphatase 64 Troponin I Total Protein 6.0 L D Albumin 2.7 L D Nasal Screen MRSA (PCR) Assessment and Plan - Plan Ms. Clark is a pleasant 87 year old female with a history of pacemaker placement (last battery change in 2008) who presents to the ED due to an episode of syncope at night on 03/05/2018. She reports more than 10 episodes of syncopal episodes in the last 30 days. Recurrent syncope Probable Pacemaker malfunction -Discussed with Dr. Cr. Patient also underwent device interrogation by [employer]. -Pacemaker battery is a still valid for another [address] Cr recommended outpatient follow-up with cardiology. -Orthostatic blood pressure check was unremarkable. Hypokalemia Hypomagnesemia Intermittent diarrhea -Replaced with IV potassium and magnesium. Potassium today is 3.9. Magnesium 1.6. -We will replace magnesium with another 2-3 g of IV magnesium sulfate. -Patient's electrolyte disturbances likely due to intermittent diarrhea. -She would like to discuss with her PCP regarding her chronic intermittent diarrhea. Hypothyroidism - Continue home med Levothyroxine 50mcg Qday. Full code. SCDs. Likely discharge later today after magnesium replacement.
[2018-03-07] MEDS: Mag Sulf 1 gm/100 ml Premix 100 ML IV.SIG SCH ×2 (11:25→14:01)
--- NOTE | 2018-03-07 14:34 | P.DCO ---
- Physical Therapy Order: Evaluate and treat, Improve ambulation, Strength and gait training - Home Health Nursing Order: Medical education, Signs/symptoms of disease process, Medication education-adverse effect, Nursing assessment with vital signs - Certification I have seen patient Afua Clark on 03/07/18. My clinical findings support the need for the requested home health care services because: Limited mobility due to disease progression, Limited ability to care for self, Need for psychosocial assistance, Impaired cognition/judgement, High risk of falls I certify that my clinical findings support that this patient is homebound because: Unsafe to leave home unassisted, Need for psychosocial assistance, Unable to use public transportation
== END 2018-03-07 17:52 | disposition home health service (06) ==
LOC: PHED 00:42 → PHEDA 05:02 → PHICU 08:17
PROVIDERS: ADMIT Hospitalist; ATTEND Hospitalist